=== PATIENT | female | born 1955 | race Caucasian/White ===

== ENCOUNTER 2024-03-11 10:13 | Outpatient (CLI) | payer MEDICARE, MEDICAID | END 2024-03-11 23:59 | disposition home or self-care (01) | LOC: RAD 10:13 | PROVIDERS: ATTEND Nurse Practitioner | DX: E11.9 Type 2 diabetes mellitus without complications (principal); I10 Essential (primary) hypertension; E78.00 Pure hypercholesterolemia, unspecified; Z82.49 Family history of ischemic heart disease and other diseases of the circulatory system | CPT/HCPCS: 75571 ==

== ENCOUNTER 2024-11-26 10:33 | Emergency (ER) | payer MEDICARE, MEDICAID ==
[~2024-11-26] VITALS: Ht 162.6 cm; Wt 56.5 kg
--- NOTE | 2024-11-26 10:40 | ELECTROCARDIOGRAPH REPORT ---
[facility] Test Date: 2024-11-26 Test Time: 10:38:21 Pat Name: SARITHA CLAUDIO Department: EMERGENCY ROOM [id number] Room: Gender: F [employer]: : [id number] Requested By: NORBERT JOY Order Number: [id number] Reading MD: Measurements Intervals Wever Rate: 71 P: 48 MD: 126 QRS: 53 QRSD: 68 T: 15 QT: 498 QTc: 542 Interpretive Statements Sinus rhythm Low voltage, precordial leads Abnormal R-wave progression, late transition Borderline T abnormalities, anterior leads Prolonged QT interval Please click the below link to view image of tracing.
[2024-11-26 11:07] LABS: MEAN PLATELET VOLUME 7.2 FL (7.4-10.4); RED CELL DISTRIBUTION WIDTH 13.1 % (11.5-14.5)
--- NOTE | 2024-11-26 11:11 | Physician Documentation ---
History of Present Illness ~ Chief Complaint: Weakness Stated Complaint: SYNCOPE DIZZINESS Time Seen by MD: 10:56 OK to notify your PCP?: Yes Source: patient Mode of Arrival: POV Exam Limitations: no limitations HPI 69-year-old female who is here with chief complaint right lower leg pain along with feeling lightheaded. She states she went to the car show this morning she woke up feeling great but when she got to the car so she started to feel pain in her right lower leg. She states that she then was walking around and the pain was getting worse. She states she sat down and then got up and felt the pain again in her right lower leg and thought that if she stretched her calf out that it would get better but then she started to feel lightheaded as she was walking around. They ended up leaving the car show and when she got into the car she states her lightheadedness got worse and she ended up vomiting. She then apparently had a syncopal episode for a few sec per . No headache, vision changes, slurred speech, numbness or weakness. Despite the chief complaint stating weakness patient denies any weakness. Has h/o syncope but states "it has been years since I have passed out." Patient reports "I just got an evaluation by a wall taper just for screening and my heart was normal. I had a stress test and echo." Patient reports active lifestyle and no exertional chest pain, lightheadedness or symptoms that are triggered or worsened by exertion. Medication Reconciliation Allergies: Coded Allergies: No Known Allergies (Unverified , 11/26/24) Past Medical History Past Surgical History: noncontributory Alcohol Use: Occasionally Drug Use: none Lives with: S/O Lives In: Home Occupation: retired Review of Systems All Other Systems at this time: Reviewed and Negative Physical Exam Vital Signs: Temperature: 97.8, Source: Oral, Heart Rate: 68, Respiratory Rate: 15, Pulse Oximetry: 98, Weight: 56.550 Physical Exam GENERAL: Alert, no acute distress. HEENT: NCAT, EOMI, PERRL, normal oropharynx, moist oral mucosa. NECK: Supple, trachea midline. CARDIAC: Regular rate and rhythm, no murmurs, rubs, or gallops. PV: Equal distal pulses. No lower extremity edema, cap refill less than 2 seconds. TTP OVER RIGHT DISTAL TIBIA AND ANKLE JOINT. AROM OF ANKLE JOINT FULL. RESPIRATORY: Equal breath sounds, clear to auscultation bilaterally, no respiratory distress. GASTROINTESTINAL: Non distended, soft, nontender, No guarding or rebound. MUSCULOSKELETAL: Normal range of motion, nontender, no swelling. Normal gait. NEUROLOGICAL: Awake, alert, and oriented x 3. STRENGTH OF MAJOR FLEXOR AND EXTENSOR MUSCLES OF LE 5/5 BILATERALLY. SKIN: Warm/dry, no pallor, no rash. PSYCH: Alert and appropriate. Affect congruent with mood. Speech is clear. Good eye contact. Progress Results/Orders Results/Orders Orders - JESSIE POLLARD PA Vl Venous (11/26/24 11:04) Ct Head (11/26/24 11:27) Cta Chest Pe (11/26/24 11:29) Completed Orders - JESSIE POLLARD PA Vl Venous (11/26/24 11:04) D-Dimer (11/26/24 11:04) Ct Head (11/26/24 11:27) Cta Chest Pe (11/26/24 11:29) Iohexol 350mg/Ml 100ml (Omnipaque 350mg/ (11/26/24 11:56) Vital Signs 11/26/24 11/26/24 11/26/24 11/26/24 10:50 11:04 11:04 12:11 Temp 97.8 97.8 97.8 Pulse 68 66 64 Resp 15 14 15 18 B/P (MAP) 107/67 (80) 100/58 (72) Pulse Ox 98 96 98 O2 Flow Rate 0 0 Laboratory Tests Test 11/26/24 10:49 11/26/24 10:53 11/26/24 12:40 D-Dimer 1.47 H D-Dimer Comment White Blood Count 9.2 Red Blood Count 4.43 Hemoglobin 13.3 Hematocrit 40.1 Mean Corpuscular Volume 90.5 Mean Corpuscular Hemoglobin 30.0 Mean Corpuscular Hemoglobin Concent 33.1 Red Cell Distribution Width 13.1 Platelet Count 397 Mean Platelet Volume 7.2 L Neutrophils (%) (Auto) 44.3 Lymphocytes (%) (Auto) 44.1 Monocytes (%) (Auto) 9.4 Eosinophils (%) (Auto) 1.6 Basophils (%) (Auto) 0.6 Neutrophils # (Auto) 4.1 Lymphocytes # (Auto) 4.1 Monocytes # (Auto) 0.9 Eosinophils # (Auto) 0.1 Basophils # (Auto) 0.1 CBC Comment Sodium Level 134 L Potassium Level 4.1 Chloride Level 101 Carbon Dioxide Level 24.6 Anion Gap 8 Blood Urea Nitrogen 10 Creatinine 0.89 Estimated GFR/1.73 m2 63 BUN/Creatinine Ratio 11.2 Glucose Level 156 H Calcium Level 8.9 Troponin I High Sensitivity 4 4 Pro-B-Type Natriuretic Peptide 65 Albumin 3.7 Chemistry Comments Troponin I High Sens Percent Delta 0 Troponin I Hi Sens Absolute Change 0 EKG/XRAY/CT/US/VASC/MRI EKG : EKG: NSR, no ST T wave changes, prolonged QT EKG Blocks: none Jal: normal Hypertrophy: none Chest X-Ray : Interpreted By: radiologist Views: 1 VIEW Lungs: normal Mediastinum: normal Ribs/Bones: normal Abdomen: normal Impression: no acute disease CT #1: Interpreted By: radiologist CT: head With Contrast?: No Impression no acute findings, no hemorrhage, infarct CT #2: Interpreted By: radiologist CT: CTA CHEST With Contrast?: Yes Impression Chest: CTDI volume is 19 mGy. Dose-length product is 439 mGy*cm The dose indicators for CT are the volume computed Tomography (CT) dose Index (CTDIvol) and the dose Length product (DLP), and are measured in units of mGy and mGy-cm, respectively. These indicators are not patient dose, but values generated from the CT scanner acquisition factors. The report includes radiation exposure data for exposures received during this examination. Findings: Pulmonary artery: No pulmonary embolism Lower neck: Normal thyroid. Lungs: No focal consolidation, pleural effusion or pneumothorax. Patchy ground- glass opacities in the lower lungs could represent subsegmental atelectasis. Heart/Vascular Structures: Normal heart size. No pericardial effusion. Lymph Nodes: No adenopathy Pleura: No pleural effusion or significant pneumothorax. Musculoskeletal: No acute osseous abnormality. Soft tissues: Normal. Upper abdomen: Limited portions of the upper abdomen are unremarkable. IMPRESSION: 1. No pulmonary embolism. 2. Patchy ground-glass opacity in the lung bases likely represent subsegmental atelectasis. Clinical correlation and continued follow-up is recommended. Vascular : Interpreted By: radiologist Vascular Study: lower extremity venous Impression no DVT, no abnormalities Medical Decision Making Differential Dx:Considerations: Include: anemia, CVA, dehydration, dysrhythmia, electrolyte imbalance, encephalopathy, Guillain-Gresham, hypoglycemia, hypotension, hypovolemia, labyrinthitis, Meniere's disease, myasathenia gravis, myocardial infarction, pulmonary embolus, renal failure, respiratory failure, TIA, VBI, vertigo central, vertigo peripheral, vestibular neuronitis, other Additional Information Patient's syncopal episode here is unusual considering it occurred at sitting position. Head CT negative, no arrhythmia on EKG, negative troponins. D dimer elevated along with syncopal episode prompted CTA scan. Departure Time of Disposition: 13:17 Disposition: 01 HOME / SELF CARE / HOMELESS Impression: Primary Impression: Leg pain, right Additional Impression: Near syncope Condition: Stable Discharge Instructions: Near-Syncope Additional Instructions: WE DISCUSSED ADMISSION DUE TO NEAR SYNCOPE FOR FURTHER WORK UP; HOWEVER, YOU JUST HAD A STRESS TEST AND ECHO WHICH WHERE NORMAL AND YOUR WORK UP HERE WAS NORMAL AND THUS SHARED DECISION MAKING UTILIZED AND IT IS REASONABLE TO DISCHAR GE YOU TO FOLLOW UP WITH YOUR PCP NEXT WEEK. IT IS UNCLEAR WHAT IS CAUSING YOUR ANKLE/LOWER LEG PAIN BUT YOU REPORT NORMAL BONE DENSITY AND NO CONCERN FOR STRESS FRACTURE AND GIVEN LACK OF INJURY WE DID NOT XRAY YOUR ANKLE. YOUR ANKLE ALSO DID NOT CAUSE YOU PAIN WITH RANGE OF MOTION OR PALPATION, IT WAS ONLY PAINFUL WHEN YOU WALKED ON THE ANKLE. GOUT ALSO IN THE DIFFERENTIAL BUT NO REDNESS OR SWELLING AND WAS NOT TENDER TO PALPATION LIKE WITH GOUT. IF WORSENING OF SYMPTOMS RETURN TO ER-OTHERWISE F/U WITH PCP NEXT WEEK. INCIDENTAL FINDING OF GROUND GLASS OPACITY ON CHEST CT SCAN-RESULTS BEFORE-F/U WITH PCP ABOUT THIS Chest: CTDI volume is 19 mGy. Dose-length product is 439 mGy*cm The dose indicators for CT are the volume computed Tomography (CT) dose Index (CTDIvol) and the dose Length product (DLP), and are measured in units of mGy and mGy-cm, respectively. These indicators are not patient dose, but values generated from the CT scanner acquisition factors. The report includes radiation exposure data for exposures received during this examination. Findings: Pulmonary artery: No pulmonary embolism Lower neck: Normal thyroid. Lungs: No focal consolidation, pleural effusion or pneumothorax. Patchy ground- glass opacities in the lower lungs could represent subsegmental atelectasis. Heart/Vascular Structures: Normal heart size. No pericardial effusion. Lymph Nodes: No adenopathy Pleura: No pleural effusion or significant pneumothorax. Musculoskeletal: No acute osseous abnormality. Soft tissues: Normal. Upper abdomen: Limited portions of the upper abdomen are unremarkable. IMPRESSION: 1. No pulmonary embolism. 2. Patchy ground-glass opacity in the lung bases likely represent subsegmental atelectasis. Clinical correlation and continued follow-up is recommended. Referrals: NO PRIMARY CARE PROVIDER (PCP) Education Educated: Patient Educated regarding: diagnosis, treatment, need for follow up Signature Scribe Signature: X Attestation: JESSIE JOYA Nov 26, 2024 11:11
--- NOTE | 2024-11-26 11:11 | RADIOLOGY REPORT ---
CHEST RADIOGRAPH Indication: CP Technique: Single frontal view of the chest was obtained COMPARISON: None FINDINGS: Lines and Tubes: None Lungs: Clear Pleura: No effusion. No pneumothorax. Cardiomediastinal contours: Unremarkable Bones: Unremarkable IMPRESSION: No acute disease.
[2024-11-26 11:23] LABS: CREATININE 0.89 MG/DL (0.40-0.90); PRO BRAIN NATRIURETIC PEPTIDE 65 PG/ML (0-125); TOTAL CARBON DIOXIDE 24.6 MMOL/L (24-32); eCRCL 50 ML/MIN; eGFR 63 ML/MIN
--- NOTE | 2024-11-26 12:03 | VASCULAR REPORT ---
VASC VL VENOUS HISTORY: right leg pain. COMPARISON: None TECHNIQUE: Duplex doppler evaluation of the deep venous system of the lower extremity from the common femoral veins, superficial femoral vein, great saphenous vein, deep femoral vein, popliteal vein, an d calf veins, including color doppler and spectral/pulsed waveform analysis, was performed. FINDINGS: Right: - Common femoral vein: Compressible - Deep femoral vein: Compressible - Femoral vein: Compressible - Popliteal vein: Compressible - Posterior tibial vein: Waveforms present - Peroneal vein: Waveforms present - Other: Nothing Left: - Common femoral vein: Waveforms present - Other: Nothing IMPRESSION: No right lower extremity deep venous thrombosis.
--- NOTE | 2024-11-26 12:42 | RADIOLOGY REPORT ---
CT CT HEAD INDICATION: syncope EXAM DATE: 11/26/2024 11:22 AM COMPARISON: None RADIATION DOSE: CTDIvol: 59 mGy, DLP: 1064 mGy*cm PROCEDURE: CT scans of the head were obtained from the vertex to the skull base. Sagittal and coronal reconstructions were provided. All CT scans at this medical facility are performed using dose modulation techniques as appropriate t o a performed exam including the following: Automated exposure control was utilized; adjustment of th e MA and/or KV according to patient size; and use of iterative reconstruction technique. FINDINGS: There is sulcal and ventricular prominence. The brainshows normal morphology and flowers-whi te matter differentiation, without intracranial hemorrhage, extra-axial fluid collection, mass effect or acute large vessel infarct. The ventricles are normal in size. The basal cisterns are patent. The skull and visible facial bones are intact. The paranasal sinuses, mastoid air cells and middle ear c avities are well-aerated. The soft tissues of the scalp are unremarkable. IMPRESSION: No acute intracranial abnormality.
--- NOTE | 2024-11-26 13:02 | RADIOLOGY REPORT ---
CTA Chest with intravenous contrast INDICATION: syncope with elevated d dimer COMPARISON: None TECHNIQUE: Multidetector spiral CTA of the chest was performed of the chest with intravenous contrast . PULMONARY ANGIOGRAPHY PROTOCOL was utilized using a bolus-tracking technique centered on the main p ulmonary artery. Axial, coronal and sagittal multiplanar and MIP reformats were performed. CONTRAST: Type of contrast: Omni 350 Contrast injected: 100 ml Radiation dose : Chest: CTDI volume is 19 mGy. Dose-length product is 439 mGy*cm The dose indicators for CT are the volume computed Tomography (CT) dose Index (CTDIvol) and the dose Length product (DLP), and are measured in units of mGy and mGy-cm, respectively. These indicators are not patient dose, but values generated from the CT scanner acquisition factors. The report includes radiation exposure data for exposures received during this examination. Findings: Pulmonary artery: No pulmonary embolism Lower neck: Normal thyroid. Lungs: No focal consolidation, pleural effusion or pneumothorax. Patchy ground-glass opacities in the lower lungs could represent subsegmental atelectasis. Heart/Vascular Structures: Normal heart size. No pericardial effusion. Lymph Nodes: No adenopathy Pleura: No pleural effusion or significant pneumothorax. Musculoskeletal: No acute osseous abnormality. Soft tissues: Normal. Upper abdomen: Limited portions of the upper abdomen are unremarkable. IMPRESSION: 1. No pulmonary embolism. 2. Patchy ground-glass opacity in the lung bases likely represent subsegmental atelectasis. Clinical correlation and continued follow-up is recommended. HS:Y
[2024-11-26 13:34] VITALS: BP 110/71; PULSE 72; RESP 16; TEMP 97.8; O2SAT 99
== END 2024-11-26 13:44 | disposition home or self-care (01) ==
LOC: ER 10:34
DX: M79.661 Pain in right lower leg (principal); R42 Dizziness and giddiness; R11.10 Vomiting, unspecified; R06.02 Shortness of breath
CPT/HCPCS: 36415; 70450; 71045; 71275; 80048; 83880; 84484; 85025; 85379; 93005; 93971; 99285; Q9967